=== PATIENT | female | born 1990 | race Two or more races ===

== ENCOUNTER 2023-12-14 02:21 | Emergency (ER) | payer OTHER ==
[~2023-12-14] VITALS: Ht 152.4 cm; Wt 88.5 kg
[2023-12-14] MEDS ORDERED: 0.9 % SODIUM CHLORIDE 1,000 ML IV STA (03:27)
[2023-12-14 03:55] LABS: HEMATOCRIT 24.2 % (36.0-45.00); MEAN CELL VOLUME 78.6 fL (80.00-100.00); MEAN CORPUSCULAR HGB CONC 32.8 g/dl (32.0-36.0); PLATELET COUNT 311 K/uL (150-450); RED BLOOD COUNT 3.08 M/uL (4.00-6.00); RED CELL DISTRIBUTION WIDTH 15.8 % (11.5-14.5)
[2023-12-14 03:57] LABS: MEAN CORPUSCULAR HEMOGLOBIN 25.9 pg (27.00-32.0)
[2023-12-14 04:04] LABS: INR 1.01; PARTIAL THROMBOPLASTIN TIME 25.9 SECONDS (22.0-34.0); PROTHROMBIN TIME 10.6 SECONDS (9.0-11.5)
[2023-12-14 04:09] LABS: ALBUMIN 2.7 gm/dL (3.4-5.0); BILIRUBIN TOTAL 0.26 mg/dL (0.3-1.2); CALCIUM 8.3 mg/dL (8.5-10.1); CREATININE SERUM 0.68 mg/dL (0.55-1.02); GFR 98.46; GLOBULINA 4.2 G/DL (2.4-3.5); TOTAL PROTEIN 6.9 gm/dL (6.4-8.2)
[2023-12-14 04:18] LABS: POTASSIUM 2.86 mEq/L (3.5-5.1)
[2023-12-14] MEDS ORDERED: POTASSIUM CHLORIDE 10 MEQ CAPSULE PO STA (04:24)
[2023-12-14 07:14] LABS: CALCIUM 8.8 mg/dL (8.5-10.1); CREATININE SERUM 0.74 mg/dL (0.55-1.02); GFR 89.31; POTASSIUM 3.39 mEq/L (3.5-5.1)
[2023-12-14] MEDS ORDERED: SOD FERRIC GLUC COMPLX/SUCROSE 62.5 MG/5 ML AMPUL IV ONE (12:00)
[2023-12-14] MEDS ORDERED: MEGESTROL ACETATE 40 MG TABLET PO ONE (12:00)
[2023-12-14] MEDS ORDERED: FAMOTIDINE/PF 20 MG in 0.9 % SODIUM CHLORIDE 8 ML IV PUSH STA (13:17)
[2023-12-14] MEDS ORDERED: MEPERIDINE HCL 25 MG/ML AMPUL IV ONE (13:30)
[2023-12-14] MEDS ORDERED: FAMOTIDINE/PF 20 MG/2 ML VIAL ONE (13:35)
[2023-12-15 01:28] LABS: HEMATOCRIT 26.3 % (36.0-45.00); HEMOGLOBIN 8.8 g/dL (12.0-15.00); MEAN CELL VOLUME 80.8 fL (80.00-100.00); MEAN CORPUSCULAR HGB CONC 33.4 g/dl (32.0-36.0); PLATELET COUNT 284 K/uL (150-450); RED BLOOD COUNT 3.25 M/uL (4.00-6.00); RED CELL DISTRIBUTION WIDTH 15.8 % (11.5-14.5)
== END 2023-12-14 09:01 | disposition home or self-care (01) ==
LOC: ER 02:23
PROVIDERS: Obstetrics & Gynecology
DX: N93.8 Other specified abnormal uterine and vaginal bleeding (principal); Z88.2 Allergy status to sulfonamides; D64.89 Other specified anemias